=== PATIENT | male | born 1955 | race African-American/Black ===

== ENCOUNTER 2021-05-07 22:46 | Emergency (ER) | payer MEDICARE, MEDICAID ==
[~2021-05-07] VITALS: Ht 172.7 cm; Wt 72.6 kg
[2021-05-07 23:24] VITALS: BP 168/99
[2021-05-08] MEDS ORDERED: LIDOCAINE 1% HCL (LOCAL ANESTH.) INJ 20ML MDV ONE (02:22)
[2021-05-08] MEDS ORDERED: LIDOCAINE 1% HCL (LOCAL ANESTH.) INJ 20ML MDV ID ONE (02:30)
== END 2021-05-08 03:06 | disposition home or self-care (01) ==
LOC: ER 22:46
DX: S63.273A Dislocation of unspecified interphalangeal joint of left middle finger, initial encounter (principal); X58.XXXA Exposure to other specified factors, initial encounter; Y93.89 Activity, other specified; Y92.89 Other specified places as the place of occurrence of the external cause; Y99.8 Other external cause status
CPT/HCPCS: 26770; 73130; 73140; 99284; J2001